=== PATIENT | male | born 1955 | race Caucasian/White ===

== ENCOUNTER 2019-10-12 11:47 | Emergency (ER) | payer OTHER ==
[2019-10-12 11:57] VITALS: BP 177/103
[2019-10-12] MEDS ORDERED: Aspirin 81 mg CHEW TAB* 81 MG TAB.CHEW PO ONE (12:04)
--- NOTE | 2019-10-12 12:05 | UC ---
Cardiac HPI - HPI Summary HPI Summary: 2 days of chest pressure radiating in to left arm--no nausea, sob, diaphoresis, states he has been adherent to his blood pressure medication---states pain does not get worse with respiration palpation or movement---states he has never had pain like this before - History of Current Complaint Chief Complaint: UCChestPain Stated Complaint: CHESTPAIN Time Seen by Provider: 10/12/19 11:59 Hx Obtained From: Patient Onset/Duration: Sudden Onset, Lasting Days - 2 Timing: Constant Pain Intensity: 6 Chest Pain Location: Left Anterior Character: Tightness Aggravating Factor(s): Nothing Alleviating Factor(s): Nothing Associated Signs & Symptoms: Positive: Chest Pain - Allergy/Home Medications Allergies/Adverse Reactions: Allergies Allergy/AdvReac Type Severity Reaction Status Date / Time No Known Allergies Allergy Verified 10/12/19 11:57 Home Medications: Home Medications Metoprolol Tartrate TAB* [Lopressor TAB*] 12.5 mg PO DAILY 10/12/19 [History Confirmed 10/12/19] lisinopriL [Lisinopril] 20 mg PO BID 10/12/19 [History Confirmed 10/12/19] PMH/Surg Hx/FS Hx/Imm Hx Previously Healthy: No Cardiovascular History: Hypertension - Surgical History Surgical History: None - Family History Known Family History: Positive: None - Social History Occupation: Employed Full-time - construction Lives: With Family Alcohol Use: None Substance Use Type: Marijuana Smoking Status (MU): Former Smoker Review of Systems All Other Systems Reviewed And Are Negative: Yes Constitutional: Positive: Negative Skin: Positive: Negative Eyes: Positive: Negative ENT: Positive: Negative Respiratory: Positive: Negative Cardiovascular: Positive: Chest Pain Gastrointestinal: Positive: Negative Genitourinary: Positive: Negative Motor: Positive: Negative Neurovascular: Positive: Negative Musculoskeletal: Positive: Negative Neurological: Positive: Negative Psychological: Positive: Negative Is Patient Immunocompromised?: No Physical Exam Triage Information Reviewed: Yes Appearance: Well-Appearing, No Pain Distress, Thin Vital Signs: Initial Vital Signs Temp 99.5 F 10/12/19 11:51 Pulse 87 10/12/19 11:51 Resp 21 10/12/19 11:51 BP 177/103 10/12/19 11:51 Pulse Ox 100 10/12/19 11:51 Vital Signs Reviewed: Yes Eye Exam: Normal Eyes: Positive: Conjunctiva Clear ENT Exam: Normal ENT: Positive: Normal ENT inspection, Hearing grossly normal, Pharynx normal, Uvula midline. Negative: Nasal congestion, Tonsillar swelling, Tonsillar exudate, Trismus, Muffled voice, Hoarse voice, Dental tenderness, Sinus tenderness Neck exam: Normal Neck: Positive: Supple, Nontender, No Lymphadenopathy Respiratory Exam: Normal Respiratory: Positive: Chest non-tender, Lungs clear, Normal breath sounds, No respiratory distress, No accessory muscle use Cardiovascular Exam: Normal Cardiovascular: Positive: RRR, No Murmur, Pulses Normal, Brisk Capillary Refill Abdominal Exam: Normal Abdomen Description: Positive: Nontender, No Organomegaly, Soft. Negative: Distended, Hepatomegaly, Peritoneal Signs Bowel Sounds: Positive: Present Musculoskeletal Exam: Normal Musculoskeletal: Positive: Strength Intact, ROM Intact, No Edema Neurological Exam: Normal Neurological: Positive: Alert, Muscle Tone Normal Psychological Exam: Normal Skin Exam: Normal Diagnostics - EKG Cardiac Rate: NL Cardiac Rhythm: Sinus: Normal Ectopy: None ST Segment: Normal EKG Comparison: Other - no ekg available for comparision - Assessment/Plan Course Of Treatment: 324 aspirin, saline lock o2 if needed to keep sat >94% to ed via ambulance - Differential Diagnoses - Chest Pain Differential Diagnosis/HQI/PQRI: ACS - Clinical Impression Provider Diagnosis: Hypertension, Chest pain in adult - Physician Notifications Discussed Patient Care With: Nabil Glover Time Discussed With Above Provider: 12:10 Instructed by Provider To: Transfer Discharge ED - Sign-Out/Discharge Documenting (check all that apply): Patient Departure All imaging exams completed and their final reports reviewed: No Studies - Discharge Plan Condition: Guarded Disposition: TRANS HIGHER LVL OF CARE FAC Referrals: Vahid Mchugh MD [Primary Care Provider] - - Billing Disposition and Condition Condition: GUARDED Disposition: Trans Higher Lvl of Care Fac
== END 2019-10-12 12:20 | disposition short-term general hospital (02) ==
LOC: UCEAST 11:47
DX: I10 Essential (primary) hypertension (principal); R07.9 Chest pain, unspecified; Z79.899 Other long term (current) drug therapy
CPT/HCPCS: 93005; 99203; A9270-GY; G0463

== ENCOUNTER 2019-10-12 12:39 | Observation (INO) | payer OTHER ==
[2019-10-12 13:29] LABS: ABS Monocytes 0.5 10^3/ul (0-0.8); ABS Neutrophils 3.2 10^3/ul (1.5-7.7); Hematocrit 42 % (42-52); Lymphocyte % 20.1 %; Mean Corpuscular HGB Conc 36 g/dL (31-36); Mean Corpuscular Hemoglobin 34 pg (27-31); Mean Corpuscular Volume 95 fL (80-94); Platelet Count 201 10^3/uL (150-450); Red Blood Count 4.48 10^6 /uL (4.18-5.48); Red Cell Distribution Width 14 % (10-15); White Blood Count 4.8 10^3/uL (3.5-10.8)
--- NOTE | 2019-10-12 13:39 | ED ---
HPI Cardiac - HPI Summary HPI Summary: Pt is a 64 y/o M presenting to the ED brought in by EMS for chest pain initially onset this morning when he was doing housework. He states he went to originally because he did not feel right, and noted his L hand fingers were numb. This episode went away after a short period of time. He notes his chest feeling weird, but hes unable to describe the sensation. He denies current pain in his chest, SOB, myalgia, cough, congestion, fever, diaphoresis, nausea, or neck pain. He states his forehead did become slightly warm/diaphoretic at the time. Patient was given 324 aspirin by EMS. No FHx cardiac disease. No hx HI. Hx HTN. - History of Current Complaint Chief Complaint: EDChestPainROMI Stated Complaint: CHEST PRESSURE PER EMS Time Seen by Provider: 10/12/19 12:49 Hx Obtained From: Patient Onset/Duration: Started Hours Ago, Still Present Timing: Constant, Lasting Hours Initial Severity: Mild Current Severity: None Pain Intensity: 0 Pain Scale Used: 0-10 Numeric Chest Pain Location: Diffuse Chest Pain Radiates: No Character: Other: - unable to describe Aggravating Factor(s): Nothing Alleviating Factor(s): Nothing Associated Signs and Symptoms: Positive: Numbness. Negative: Chest Pain, Shortness of Breath, Fever, Diaphoresis, Nausea, Cough - Allergy/Home Medications Allergies/Adverse Reactions: Allergies Allergy/AdvReac Type Severity Reaction Status Date / Time No Known Allergies Allergy Verified 10/12/19 11:57 PMH/Surg Hx/FS Hx/Imm Hx Previously Healthy: Yes Cardiovascular History: Reports: Hx Hypertension Denies: Hx Myocardial Infarction Musculoskeletal History: Denies: Hx Scoliosis Neurological History: Denies: Hx Headaches, Other Neuro Impairments/Disorders Infectious Disease History: No Infectious Disease History: Denies: Traveled Outside the [place] in Last 30 Days - Family History Known Family History: Negative: Cardiac Disease - Social History Alcohol Use: None Hx Substance Use: Yes Substance Use Type: Reports: Marijuana Hx Tobacco Use: Yes Smoking Status (MU): Former Smoker Review of Systems Negative: Fever, Skin Diaphoresis Negative: Nasal Discharge Negative: Chest Pain Negative: Shortness Of Breath, Cough Negative: Nausea Negative: Myalgia Positive: Numbness All Other Systems Reviewed And Are Negative: Yes Physical Exam - Summary Physical Exam Summary: Constitutional: Well-developed, Well-nourished, Alert. (-) Distressed Skin: Warm, Dry HENT: Normocephalic; Atraumatic Eyes: Conjunctiva normal Neck: Musculoskeletal ROM normal neck. (-) JVD, (-) Stridor, (-) Nuchal rigidity Cardio: Rhythm regular, rate normal, Heart sounds normal; Intact distal pulses; Radial pulses are 2+ and symmetric. (-) Murmur Pulmonary/Chest wall: Effort normal. (-) Respiratory distress, (-) Wheezes, (-) Rales Abd: Soft, (-) tenderness, (-) Distension, (-) Guarding, (-) Rebound Musculoskeletal: (-) Edema Lymph: (-) Cervical adenopathy Neuro: Alert, Oriented x3 Psych: Mood and affect Normal Triage Information Reviewed: Yes Vital Signs On Initial Exam: Initial Vitals Temp Pulse Resp BP Pulse Ox 99.5 F 79 16 175/100 97 10/12/19 12:45 10/12/19 12:45 10/12/19 12:45 10/12/19 12:45 10/12/19 12:45 Vital Signs Reviewed: Yes Procedures - Sedation Patient Received Moderate/Deep Sedation with Procedure: No Diagnostics - Vital Signs Vital Signs Temp Pulse Resp BP Pulse Ox 10/12/19 12:45 99.5 F 79 16 175/100 97 - Laboratory Lab Results: Lab Results 10/12/19 Range/Units 13:23 WBC 4.8 (3.5-10.8) 10^3/uL RBC 4.48 (4.18-5.48) 10^6 /uL Hgb 15.0 (14.0-18.0) g/dL Hct 42 (42-52) % MCV 95 H (80-94) fL MCH 34 H (27-31) pg MCHC 36 (31-36) g/dL RDW 14 (10-15) % Plt Count 201 (150-450) 10^3/uL MPV 8.0 (7.4-10.4) fL Neut % (Auto) 66.7 % Lymph % (Auto) 20.1 % Jones % (Auto) 11.3 % Eos % (Auto) 1.0 % Baso % (Auto) 0.9 % Absolute Neuts (auto) 3.2 (1.5-7.7) 10^3/ul Absolute Lymphs (auto) 1.0 (1.0-4.8) 10^3/ul Absolute Monos (auto) 0.5 (0-0.8) 10^3/ul Absolute Eos (auto) 0.0 (0-0.6) 10^3/ul Absolute Basos (auto) 0.0 (0-0.2) 10^3/ul Absolute Nucleated RBC 0.0 10^3/ul Nucleated RBC % 0.0 Result Diagrams: 10/12/19 13:23 10/12/19 13:23 Lab Statement: Any lab studies that have been ordered have been reviewed, and results considered in the medical decision making process. - Radiology CXR Radiology Interpretation Completed By: Radiologist Summary of Radiographic Findings: No active cardiopulmonary disease is noted. ED physician has reviewed this report. - EKG 1245 Cardiac Rate: NL - 87bpm EKG Rhythm: Sinus Rhythm ST Segment: Normal Ectopy: None Summary of EKG Findings: An EKG at 1245 reveals normal sinus rhythm 87bpm, with T wave inversions in lead III. No STEMI. No acute changes. ED physician has reviewed and interpreted this EKG. 1305 Cardiac Rate: NL - 72bpm EKG Rhythm: Sinus Rhythm ST Segment: Normal Ectopy: None EKG Comparison: No Significant Change Summary of EKG Findings: An EKG at 1305 reveals normal sinus rhythm 72bpm, with T-wave inversions in lead III. No STEMI. No acute changes. No change from prior. ED physician has reviewed and interpreted this EKG. Disposition - Course Course Of Treatment: 64-year-old male history of hypertension presents with episode of chest pressure. Chest Pain DDX: The patient is well appearing, with stable vitals. Given the patient's clinical presentation, highest on differential is ACS - EKG with T-wave inversions in lead 3 no prior. Troponin normal 1. Patient reports diaphoresis and mild chest pressure on exertion. No recent stress test. Heart score-4. We'll admit for observation and stress tomorrow. Although less likely, differential also includes the following: -- Pneumothorax: Equal breath sounds, story inconsistent since gradual onset of symptoms. CXR shows no evidence of pneumothorax. Unlikely. --Cardiac tamponade : The history and physical are not concerning for tamponade. No Pulsus Paradoxus , no tachypnea. Unlikely. --Mediastinitis or esophageal rupture: The history is not consistent, as the patient has had no recent history of significant wretching, instrumentation, or mediastinal surgeries. Unlikely. --Aortic dissection: The patient does not describe the classical tearing chest pain radiating into the back, and the CXR does not show mediastinal widening or other signs of aortic dissection. Unlikely. --PE: Vitals wnl (not hypoxic, tachycardic or tachypneic) - Diagnoses Provider Diagnoses: Chest pain - Physician Notifications Discussed Care Of Patient With: Janett Fried Time Discussed With Above Provider: 15:03 Instructed by Provider To: Admit As Inpatient Discharge ED - Sign-Out/Discharge Documenting (check all that apply): Patient Departure - Discharge Plan Condition: Stable Disposition: ADMITTED TO [facility] Referrals: Vahid Mchugh MD [Primary Care Provider] - - Billing Disposition and Condition Condition: STABLE Disposition: Admitted to [facility] - Attestation Statements Document Initiated by Scribe: Yes Documenting Scribe: Camilla Doran Provider For Whom Sherwin is Documenting (Include Credential): Vivi Hall MD. Scribe Attestation: ICamilla, joaquined for Vivi Hall MD. on 10/12/19 at 1506. Scribe Documentation Reviewed: Yes Provider Attestation: The documentation as recorded by the scribeCamilla accurately reflects the service I personally performed and the decisions made by , Vivi Hall MD. Status of Scribe Document: Viewed
[2019-10-12 13:48] LABS: Albumin 4.4 g/dL (3.2-5.2); Albumin/Globulin Ratio 1.2 (1-3); BUN/Creatinine Ratio 17.8 (8-20); Calcium 10.3 mg/dL (8.6-10.3); EGFR African American 89.4 (>60); EGFR Non-African American 73.9 (>60); Globulin 3.6 g/dL (2-4); Potassium 3.6 mmol/L (3.5-5.0); Total Bilirubin 0.6 mg/dL (0.2-1.0)
[2019-10-12] MEDS ORDERED: Acetaminophen TAB* 325 MG PO PRN (15:34)
[2019-10-12] MEDS ORDERED: Ondansetron INJ* 2 MG/ML VIAL IV PRN (15:34)
[2019-10-12] MEDS ORDERED: Senna TAB 8.6 mg* TAB PO PRN (15:34)
[2019-10-12] MEDS ORDERED: Al Hydrox/Mg Hydrox/Simet LIQ* 30 ML UDC PO PRN (15:34)
[2019-10-12] MEDS ORDERED: hydrALAZINE IV* 20 MG/ML VIAL IV SLOW PU PRN (15:44)
[2019-10-12] MEDS ORDERED: Enoxaparin(*) 40 MG/0.4 ML SYR SUBCUT SCH (16:00)
[2019-10-12 16:25] LABS: TSH (Thyroid Stimulating Horm) 1.08 mcIU/mL (0.34-5.60)
[2019-10-12 17:45] LABS: Folate 16.13 ng/mL (>3.99)
--- NOTE | 2019-10-12 18:33 | HP ---
CC: Dr. Mchugh * HISTORY AND PHYSICAL: DATE OF ADMISSION: 10/12/19 ATTENDING PHYSICIAN WHILE IN THE HOSPITAL: Dr. Janett Fried * (dictated by YOHAN Ley). PRIMARY CARE PROVIDER: Dr. Mchugh at the [facility]. CHIEF COMPLAINT: Chest pressure. HISTORY OF PRESENT ILLNESS: Simon Araiza is a 64-year-old white male with past medical history significant for hypertension, who presented to the emergency department today due to chest pressure. The patient additionally notes that he has frontal headache and had 30 minutes of left arm tingling earlier today. The patient has had headache starting from the last 2 days and the chest pressure and the left arm tingling started today. The patient took his blood pressure at home and it was approximately 190/100 and he decided to report to the emergency department. The patient does note that he struck his head due to an abrupt stop in the bulldozer at work and struck his head on the mirror of the bulldozer approximately 6 days ago; however, he was not having headache on the days after this event. The patient denies visual changes, dizziness, lightheadedness, difficulty breathing, severe chest pain, neck or jaw pain, lower extremity edema, abdominal pain or nausea. The patient's notes that the patient did not have any facial drooping or slurred speech. The patient denies unilateral weakness. The patient notes that he has been adherent to his medications. ED COURSE: The patient arrived to the emergency department. His vital signs were temperature 99.5 degrees Fahrenheit, pulse rate of 82, respiratory rate 15 , oxygen saturation 97% on room air, blood pressure 175/100. The patient received 324 mg of p.o. aspirin in the ambulance. Given the patient's presentation, the hospitalists were asked to evaluate the patient for admission. PAST MEDICAL HISTORY: 1. Hypertension. 2. Previous alcohol use with recent cessation. 3. Liver mass of unclear etiology. Liver biopsy negative for malignancy per patient. PAST SURGICAL HISTORY: Liver biopsy. HOME MEDICATIONS: 1. Lisinopril 20 mg p.o. b.i.d. 2. Metoprolol tartrate 12.5 mg p.o. daily. ALLERGIES: No known drug allergies. FAMILY HISTORY: Father diseased in his 80s of unclear cause. He had a history of TIAs and dementia. Mother is living in her 80s. The patient denies a history of hypertension, CVA, CAD or TIAs. SOCIAL HISTORY: The patient is a commercial construction superintendent. He lives with his girlfriend, who he would like to be his surrogate medical decision maker should he need one. Her name is Lisbeth Wagner. Her phone number is [phone]. The patient was previously a heavy drinker. He was drinking approximately 2 to 6 beers per day for 15 years and recently stopped. He was previously smoking cigarettes for approximately 20 years at 1.5 to 2 packs per day and quit approximately 20 years ago. He currently smokes marijuana approximately 5 to 6 times per day. Denies other illicit drug use. REVIEW OF SYSTEMS: An 11-point review of systems was completed and all pertinent positives and negatives as above in the HPI. All other systems are negative. PHYSICAL EXAMINATION GENERAL: A white male, who appears slightly older than his stated age, lying upright in hospital bed, appearing comfortable, in no acute distress. HEENT: Head: Normocephalic, atraumatic. Eyes: PERRLA. Sclerae anicteric. ENT: Mucous membranes are moist. LUNGS: Clear to auscultation throughout. CARDIO: Regular rate and rhythm with murmurs, rubs or gallops. No tenderness to palpation in the anterior chest. ABDOMEN: Soft, nontender and nondistended. EXTREMITIES: No clubbing, cyanosis or edema. NEUROLOGIC: The patient is alert and oriented x3. No focal deficits. Strength is 5/5 in all extremities. Sensation is grossly intact throughout. Face is symmetrical. Speech is clear. DIAGNOSTIC STUDIES/LAB DATA: White blood cell count 4.8, hemoglobin 15, hematocrit 42, platelet count 201. Sodium 135, potassium 3.6, chloride 96, carbon dioxide 31, anion gap 8, BUN 18, creatinine 1.01, glucose 106, calcium 10.3. LFTs are unremarkable. Troponin 0.00. Chest x-ray: No active cardiopulmonary disease is noted. EKG at 1245: No ST elevations or depression, some T-wave inversions in lead III , no prior EKG for comparison. EKG at 1536: No ST depressions or elevations. Normal sinus rhythm at rate 71 beats per minute. Left axis deviation. T-wave inversion isolated in lead III. ASSESSMENT AND PLAN: Simon Araiza is a 64-year-old white male with past medical history significant for hypertension and indeterminate liver mass, who presents to emergency department for chest pressure. The patient will admitted OBV for: 1. Chest pressure. This could very well be related to the patient's elevated blood pressure that he is experiencing at home and in the emergency department. His blood pressure when he arrived to the emergency department was 175/100. I will order p.r.n. hydralazine for systolic blood pressure of over 150 and continue to monitor. It appears he could probably have better control of his blood pressure at home. I am going to change lisinopril to 40 mg p.o. daily and increase his metoprolol tartrate to 25 mg p.o. b.i.d. as it appears he is only taking this once a day, which is less effective. His initial troponin has been negative and his initial EKGs are without any ischemic changes. I will continue to trend his troponin as well as get EKGs. I will order an exercise stress test and nuclear stress test with exercise portion for tomorrow. He had an echocardiogram in 2019, which was done at [facility] and demonstrated left ventricular hypertrophy with an EF of 60% to 65%. I do not believe that another echocardiogram is needed at this time. He already received 324 mg of aspirin. I will order a fasting lipid panel as well as hemoglobin A1c. 2. Regarding his left arm tingling, this could give us more suspicion for acute coronary syndrome, which is all the more reason to perform a stress test.. I do not believe this is from a transient ischemic attack, although this cannot be ruled out. All the more reason to have lipid panel. He is neurologically intact at this time. I will order TSH, folate and B12 as well. 3. Hypertension. As previously mentioned, the patient has elevated blood pressure in the emergency department as well as at home. Blood pressure medication changes as above. If needed, perhaps amlodipine should be added to his regimen for discharge, but we will continue to monitor this. 4. FEN. Electrolytes are within normal limits. No need for IV hydration. The patient may have a regular unrestricted diet. 5. DVT prophylaxis. The patient has DVT risk score of 2. I will order Lovenox. 6. Code status. The patient is full code. TIME SPENT ON THIS ADMISSION: Approximately 45 minutes spent on this admission ; more than half of that time was spent at bedside evaluating the patient and discussing plan of care. This case has been reviewed with my attending, Dr. Janett Fried, she agrees with this plan of care. YOHAN LEY [id number]/[facility] #: [id number] ROS[facility]
[2019-10-12] MEDS: Metoprolol Tartrate TAB* 25 MG PO SCH (20:41)
[2019-10-12] MEDS ORDERED: NON FORMULARY MED* (Lisinopril [Lisinopril] 20 MG) PO SCH (21:00)
[2019-10-13 05:02] LABS: HDL Cholesterol 48.2 mg/dL
[2019-10-13 08:56] LABS: BUN/Creatinine Ratio 15.2 (8-20); Calcium 10.2 mg/dL (8.6-10.3); EGFR African American 85.5 (>60); EGFR Non-African American 70.7 (>60); Potassium 3.1 mmol/L (3.5-5.0)
[2019-10-13] MEDS ORDERED: Lisinopril TAB* 10 MG PO SCH (09:00)
[2019-10-13 15:59] VITALS: BP 126/92
[2019-10-13] MEDS: Metoprolol Tartrate TAB* 25 MG PO SCH (16:15)
--- NOTE | 2019-10-14 02:40 | DS ---
CC: Dr. Mchugh * DISCHARGE SUMMARY: DATE OF ADMISSION: 10/12/19 DATE OF DISCHARGE: 10/13/19 PROVIDER: YOHAN Ley ATTENDING PHYSICIAN WHILE IN THE HOSPITAL: Adelina Hinojosa MD * (dictated by YOHAN Ley) PRIMARY CARE PROVIDER: Dr. Mchugh. PRIMARY DIAGNOSIS: Chest pain, likely related to hypertensive urgency. SECONDARY DIAGNOSES: 1. Hypertension. 2. History of alcohol use with recent cessation. 3. Liver mass of unclear etiology, currently being worked up with biopsy negative for malignancy per the patient. PERTINENT STUDIES/LAB DATA: Nuclear medicine scan on 10/13/19, impression: No fixed or reversible perfusion deficits. Assessment: Low risk. Chest x-ray on 10/12/19, no active cardiopulmonary disease. Pertinent lab data: LDL 75. Vitamin B12 305. Folate 16.13. TSH 1.08. HISTORY OF PRESENT ILLNESS/HOSPITAL COURSE: Simon Araiza is a 64-year-old white male with a past medical history significant for hypertension, alcohol use with recent cessation, who presented to the emergency department due to chest pressure with associated left arm tingling as well as frontal headache. For further details regarding admission, please see history and physical written by myself on 10/12/19. The patient on the day of discharge is feeling improved. He no longer had any headache, chest pressure, arm tingling. He had no associated dyspnea, dizziness, lightheadedness, or visual changes. I did increase his metoprolol to 25 mg p.o. b.i.d. and changed his lisinopril to be 40 mg total in the beginning of a day and he did have improvement of his blood pressure during his hospital stay. He did require 1 dose of IV hydralazine during his hospital stay due to his elevated blood pressure. Initially it was 175/100. On the day of discharge, the patient is still feeling improved. His stress test was low risk and given that his chest pain improved with the improvement of his hypertension, I believe his presentation was likely related to his hypertension. PHYSICAL EXAM ON THE DAY OF DISCHARGE: General: White male, lying upright in the hospital bed, appearing comfortable, in no acute distress. Eyes: PERRL. Sclerae anicteric. ENT: Mucous membranes moist. Cardio: Regular rate and rhythm without murmurs, rubs, or gallops. Lungs: Clear to auscultation bilaterally. Neuro: The patient is alert and oriented x3. No focal deficits. DISCHARGE PLAN: Diet: Regular unrestricted diet. Activity: The patient may return to normal activity as tolerated. The patient was advised to follow up with his primary care provider regarding this hospital stay as well as recent head injury he had. I advised him to return to the emergency department if he experiences any severe chest pain, difficulty breathing, dizziness, lightheadedness, visual changes, severe head pain, loss of consciousness, or other concerning symptoms. He does have a blood pressure cuff at home and I advised him to check his blood pressure once a day every 1 to 2 days and records these readings, so that he can follow up with Dr. Mchugh to evaluate if any further medication changes need to occur to better control his hypertension. DISCHARGE MEDICATIONS: New medications: 1. Metoprolol tartrate 25 mg p.o. b.i.d. 2. Lisinopril 40 mg p.o. daily. Discontinued home medications: 1. Lisinopril 20 mg p.o. b.i.d. 2. Metoprolol tartrate 12.5 mg p.o. daily. CONDITION ON DISCHARGE: Stable. DISPOSITION: Home. TIME SPENT: Approximately 40 minutes was spent on this discharge, approximately half of this time was spent at bedside evaluating the patient, discussing the plan of care. YOHAN LEY [id number]/[facility] #: [id number] [facility] CENTERTrisha
== END 2019-10-13 16:30 | disposition home or self-care (01) ==
LOC: ED 12:39 → MEDTELE 15:34
PROVIDERS: ADMIT Internal Medicine; ATTEND Internal Medicine
DX: R07.9 Chest pain, unspecified (principal); I10 Essential (primary) hypertension; F10.10 Alcohol abuse, uncomplicated; K76.89 Other specified diseases of liver; Z79.899 Other long term (current) drug therapy; Z87.891 Personal history of nicotine dependence; R20.0 Anesthesia of skin
CPT/HCPCS: 36415; 71046; 78452; 80048; 80053; 80061; 82607; 82746; 83036; 84443; 84484; 85025; 93005; 93017; 96372; 96374; 99283; A9270-GY; A9502; G0378; J0360; J1650